=== PATIENT | female | born 1980 | race Caucasian/White ===

== ENCOUNTER 2017-12-03 18:05 | Emergency (ER) | payer MEDICAID ==
--- NOTE | 2017-12-03 19:18 | PD ---
HPI Chief Complaint sent from Theresa Carrera's office Date Seen: Dec 03, 2017 Time Seen: 19:11 Travel History International Travel<30 Days: No Contact w/Intl Traveler<30Days: No Known Affected Area: No History of Present Illness HPI 37y/o G1 @ 38.1wks. She has PNC with Theresa Carrera. She speaks Irish only. She reports that she was seen in the clinic today and was told to come here because she was not leaking her fluid at 39 weeks. She denies LOF, VB. Has occasional ctx. +FM. Weeks Gestation: 38 Para: 0 : 1 History Past Medical History Medical History: Denies Significant Hx Obstetric History Obstetric History 1. current Past Surgical History Surgical History: No Previous Surgery Family History Family History: Negative Social History Alcohol Use: No Tobacco Use: No Substance Abuse: No Review of Systems Except as stated in HPI: all other systems reviewed are Neg Physical Exam Narrative General: well developed, well nourished, no acute distress HEENT: normocephalic atraumatic, extraocular movements intact, neck supple Abdomen: soft, gravid, nontender, nondistended Uterus: fundus soft, non-tender Extremities: full range of motion Skin: normal coloration, no rashes, no suspicious skin lesions noted Neurologic: cranial nerves 2-12 grossly intact, normal muscle tone, normal gait Psychiatric: normal mood and affect, appropriate FHTs: 140s, +accels, no decels, moderate variability, reactive Veazie: quiet Cvx: FT/60/-1 Data Data Vital Signs Reviewed: Yes Orders Orders Vital Signs (Adult) .ON ADMISSION (12/03/17 19:09) ^ Labor Status (12/03/17 19:09) ^ Non Stress Test (12/03/17 19:09) Ed Discharge Order (12/03/17 19:09) MDM Plan 37y/o G1 @ 38.1wks. -- NST reactive -- toco quiet -- pt denies LOF, VB, occasional ctx Dispo: stable for d/c home with precautions Diagnosis Diagnosis: Primary Impression: 38 weeks gestation of Disposition: 01 DISCHARGE HOME Condition: Stable Patient Instructions: General Instructions, Having Your Baby: The Labor Process (GEN) Departure Forms: Tests/Procedures Loraine Hankins MD Dec 03, 2017 19:18
== END 2017-12-03 19:24 | disposition home or self-care (01) ==
LOC: HOBED 18:05
DX: O26.893 Other specified pregnancy related conditions, third trimester (principal); Z3A.38 38 weeks gestation of pregnancy
CPT/HCPCS: 99283

== ENCOUNTER 2017-12-06 07:46 | Inpatient (IN) | payer MEDICAID ==
[2017-12-06] VITALS (53 sets, daily range): BP systolic 91–128; BP diastolic 51–80; PULSE 81–114; RESP 18; TEMP 97.9–101.1
[~2017-12-06] VITALS: Ht 160 cm; Wt 55.0 kg
[2017-12-06] MEDS ORDERED: PREN1TAB45 PO (08:35)
[2017-12-06] MEDS ORDERED: LACTATED RINGER'S 1000 ML INJ 1,000 ML IV PRN (08:55)
[2017-12-06] MEDS: LACTATED RINGER'S 1000 ML INJ 1,000 ML IV SCH ×3 (08:55→18:15)
--- NOTE | 2017-12-06 08:58 | PD ---
HPI Chief Complaint Pt is a 37 yo at 39 weeks and 4 days. EDC 12-09-2017, care with Theresa Carrera. Albanian -speaking only. Pt reports contractions past 2 days. Active movements No vaginal leaking or bleeding. Travel History International Travel<30 Days: No Contact w/Intl Traveler<30Days: No Known Affected Area: No History of Present Illness HPI Pt is a 37 yo who presents with contractions past 2 days. Pt receives care with Theresa Carrera. EDC 12-09-2017 making her 38 weeks and 4 days per 15 week ultrasound. Active movements. Albanian speaking only Weeks Gestation: 39 Para: 0 : 1 History Past Medical History Medical History: Denies Significant Hx Obstetric History Obstetric History Primigravida Past Surgical History Surgical History: No Previous Surgery Family History Family History: Negative Social History Alcohol Use: No Tobacco Use: No Substance Abuse: No Allergies-Medications (Allergen,Severity, Reaction): Coded Allergies: No Known Allergies (Verified Allergy, Unknown, 12/06/17) Home Meds Reported Medications Vit,Calc76/Iron/Folic (Pnv 29-1 Tablet) 29 Mg Iron-1 Mg Tablet, 1 TAB PO DAILY 12/06/17 Review of Systems Except as stated in HPI: all other systems reviewed are Neg Physical Exam Narrative GENERAL: Well-nourished, well-developed patient. SKIN: Warm and dry. HEAD: Normocephalic and atraumatic. EYES: No scleral icterus. No injection or drainage. ENT: No nasal drainage noted. Mucous membranes pink. Airway patent. NECK: Supple, trachea midline. No JVD. CARDIOVASCULAR: Regular rate and rhythm without murmurs, gallops, or rubs. RESPIRATORY: Breath sounds equal bilaterally. No accessory muscle use. BREASTS: Bilateral exam showed no masses , no retractions, no nipple discharge. ABDOMEN/GI: Abdomen soft, non-tender, bowel sounds present, no rebound, no guarding Gravid to [39] weeks size Fundal Height: [-] GENITOURINARY: External Genitalia: intact and normal in appearance BUS glands: [wnl] Cervix: [soft] Dilatation: [4-5cm] Effacement: [100%] Station: [0] Presentation: [-] Membranes: [intact] Uterine Contractions: [1-3 minutes] FHT's: Category: [1] Baseline: [120s] Reactive: [-] Variability: moderate] Decels: [none] EXTREMITIES: No cyanosis or edema. BACK: Nontender without obvious deformity. No CVA tenderness. NEUROLOGICAL: Awake and alert. Motor and sensory grossly within normal limits. Five out of 5 muscle strength in all muscle groups. Normal speech. Data Data Vital Signs Reviewed: Yes Orders Orders Ob (2e) Additional Admit Info (12/06/17 08:32) MDM Plan Pt is a 37 yo who presents in labor at term. status reassuring Will admit to L&D GBS status unknown, will initiate GBS prophylaxis Diagnosis Diagnosis: Primary Impression: Admitted to labor and delivery Additional Impression: 39 weeks gestation of Maximino Freedman MD Dec 06, 2017 08:58
[2017-12-06] MEDS ORDERED: ONDANSETRON HCL 4 MG/2 ML VIAL IV PUSH PRN (09:00)
[2017-12-06] MEDS ORDERED: LIDOCAINE HCL 1% 50 ML VIAL I-DERMAL PRN (09:00)
[2017-12-06] MEDS ORDERED: LIDOCAINE HCL 1% 50 ML VIAL INFIL PRN (09:00)
[2017-12-06] MEDS ORDERED: PENICILLIN G POTASSIUM INJ 5,000,000 UNITS in SODIUM CHLORIDE 0.9% INJ 100 ML IV ONE (09:00)
[2017-12-06] MEDS ORDERED: CITRIC ACID-SODIUM CITRATE LIQ 30 ML UDC PO SCH (09:00)
[2017-12-06] MEDS ORDERED: SODIUM CHLORID 0.9% 500 ML INJ 500 ML IV PRN (09:00)
[2017-12-06] MEDS ORDERED: MINERAL OIL 10 ML VIAL TOPICAL PRN (09:00)
[2017-12-06] MEDS ORDERED: OXYTOCIN 30 UNITS-500ML PREMIX 500 ML IV ONE (09:00)
[2017-12-06] MEDS ORDERED: SODIUM CHLOR 0.9% 1000 ML INJ 1,000 ML IV PRN (09:15)
--- NOTE | 2017-12-06 09:27 | HHI.HP ---
HPI Chief Complaint Admitted in labor 39 weeks and 4 days Travel History International Travel<30 Days: No Contact w/Intl Traveler<30Days: No Known Affected Area: No History of Present Illness HPI Pt is a 37 yo who presents with contractions past 2 days. Pt receives care with Theresa Carrera. [facility] 12-09-2017 making her 38 weeks and 4 days per 15 week ultrasound. Active movements. Qatari speaking only Pt is 4-5 cm dilated and admitted to L&D Allergies-Medications (Allergen,Severity, Reaction): Coded Allergies: No Known Allergies (Verified Allergy, Unknown, 12/06/17) Home Meds Active Scripts Sennosides-Docusate Sodium (Gnp Senna Plus 8.6-50 mg) 8.6 Mg-50 Mg Tab, 2 TAB PO Q12H Y for CONSTIPATION, #60 TAB Prov:Noe Barillas MD R2 12/08/17 Ibuprofen (Ibuprofen) 800 Mg Tab, 800 MG PO Q8H Y for CRAMPING, #30 TAB Prov:Noe Barillas MD R2 12/08/17 Reported Medications Vit,Calc76/Iron/Folic (Pnv 29-1 Tablet) 29 Mg Iron-1 Mg Tablet, 1 TAB PO DAILY 12/06/17 Physical Exam Narrative GENERAL: Well-nourished, well-developed patient. SKIN: Warm and dry. HEAD: Normocephalic and atraumatic. EYES: No scleral icterus. No injection or drainage. ENT: No nasal drainage noted. Mucous membranes pink. Airway patent. NECK: Supple, trachea midline. No JVD. CARDIOVASCULAR: Regular rate and rhythm without murmurs, gallops, or rubs. RESPIRATORY: Breath sounds equal bilaterally. No accessory muscle use. BREASTS: Bilateral exam showed no masses , no retractions, no nipple discharge. ABDOMEN/GI: Abdomen soft, non-tender, bowel sounds present, no rebound, no guarding Gravid to [-] weeks size Fundal Height: [-] GENITOURINARY: External Genitalia: intact and normal in appearance BUS glands: [-] Cervix: [-] Dilatation: [-] Effacement: [-] Station: [-] Presentation: [-] Membranes: [intact or ruptured] Uterine Contractions: [-] FHT's: Category: [-] Baseline: [-] Reactive: [-] Variability: [-] Decels: [-] EXTREMITIES: No cyanosis or edema. BACK: Nontender without obvious deformity. No CVA tenderness. NEUROLOGICAL: Awake and alert. Motor and sensory grossly within normal limits. Five out of 5 muscle strength in all muscle groups. Normal speech. Caprini VTE Risk Assessment Caprini VTE Risk Assessment: No/Low Risk (score <= 1) Caprini Risk Assessment Model Point Value = 1 Point Value = 2 Point Value = 3 Point Value = 5 Age 41-60 Minor surgery BMI > 25 kg/m2 Swollen legs Varicose veins or History of unexplained or recurrent spontaneous Oral contraceptives or hormone replacement Sepsis (< 1 month) Serious lung disease, including pneumonia (< 1 month) Abnormal pulmonary function Acute myocardial infarction Congestive heart failure (< 1 month) History of inflammatory bowel disease Medical patient at bed rest Age 61-74 Arthroscopic surgery Major open surgery (> 45 min) Laparoscopic surgery (> 45 min) Malignancy Confined to bed (> 72 hours) Immobilizing plaster cast Central venous access Age >= 75 History of VTE Family history of VTE Factor V Leiden Prothrombin [id number] Lupus anticoagulant Anticardiolipin antibodies Elevated serum homocysteine Heparin-induced thrombocytopenia Other congenital or acquired thrombophilia Stroke (< 1 month) Elective arthroplasty Hip, pelvis, or leg fracture Acute spinal cord injury (< 1 month) Prophylaxis Regimen Total Risk Factor Score Risk Level Prophylaxis Regimen 0-1 Low Early ambulation 2 Moderate Order ONE of the following: *Sequential Compression Device (SCD) *Heparin 5000 units SQ BID 3-4 Higher Order ONE of the following medications: *Heparin 5000 units SQ TID *Enoxaparin/Lovenox 40 mg SQ daily (WT < 150 kg, CrCl > 30 mL/min) *Enoxaparin/Lovenox 30 mg SQ daily (WT < 150 kg, CrCl > 10-29 mL/min) *Enoxaparin/Lovenox 30 mg SQ BID (WT < 150 kg, CrCl > 30 mL/min) AND/OR *Sequential Compression Device (SCD) 5 or more Highest Order ONE of the following medications: *Heparin 5000 units SQ TID (Preferred with Epidurals) *Enoxaparin/Lovenox 40 mg SQ daily (WT < 150 kg, CrCl > 30 mL/min) *Enoxaparin/Lovenox 30 mg SQ daily (WT < 150 kg, CrCl > 10-29 mL/min) *Enoxaparin/Lovenox 30 mg SQ BID (WT < 150 kg, CrCl > 30 mL/min) AND *Sequential Compression Device (SCD) Data Data Orders Orders Ob (2e) Additional Admit Info (12/06/17 08:32) Admit To Inpatient (12/06/17 ) Code Status (12/06/17 08:55) Vital Signs (Adult) .Per protocol (12/06/17 08:55) Activity Oob Ad Ashlie (12/06/17 08:55) Heart (12/06/17 08:55) Amnioinfusion (12/06/17 08:55) Urinary Catheter Management .ONCE (12/06/17 08:55) Diet Liquid (12/06/17 Breakfast) Lactated Ringer's 1000 Ml Inj (Lr 1000 M (12/06/17 08:55) Lactated Ringer's 1000 Ml Inj (Lr 1000 M (12/06/17 08:55) Sodium Chlorid 0.9% 500 Ml Inj (Ns 500 M (12/06/17 09:00) Sodium Chlor 0.9% 1000 Ml Inj (Ns 1000 M (12/06/17 09:15) Lidocaine 1% Inj (50 Ml) (Xylocaine 1% I (12/06/17 09:00) Citric Acid-Sodium Citrate Liq (Bicitra (12/06/17 09:00) Ondansetron Inj (Zofran Inj) (12/06/17 09:00) Fentanyl Inj (Fentanyl Inj) (12/06/17 09:00) Fentanyl Inj (Fentanyl Inj) (12/06/17 09:00) Penicillin G Potassium Inj (Pfizerpen-G (12/06/17 09:00) Penicillin G Potassium Inj (Pfizerpen-G (12/06/17 13:00) Complete Blood Count With Diff (12/06/17 08:55) Hold Clot (12/06/17 08:55) Abo/Rh Blood Type (12/06/17 08:55) Urinalysis - C+S If Indicated (12/06/17 08:55) Drug Screen, Random Urine (12/06/17 08:55) Resp Oxygen Non Rebreathe Mask (12/06/17 ) ^ Epidural / Intrathecal Infus (12/06/17 08:55) Oxytocin 30 Units-500ml Premix (Pitocin (12/06/17 09:00) Lidocaine 1% Inj (50 Ml) (Xylocaine 1% I (12/06/17 09:00) Light Mineral Oil (Muri-Lube Oil) (12/06/17 09:00) Inpatient Certification (12/06/17 ) Specimen To Be Collected PRN (12/06/17 08:55) Specimen To Be Collected PRN (12/06/17 08:55) Group B Strep Pcr (Rapid) (12/06/17 08:57) Labs Laboratory Tests Test 12/06/17 08:49 Maximino Freedman MD Dec 06, 2017 09:27
[2017-12-06] MEDS ORDERED: fentaNYL 2MCG-BUPIV 0.125% INJ 100 ML ONE (09:35)
[2017-12-06 09:36] LABS: AUTOMATED NEUTROPHIL # 11.7 TH/MM3 (1.8-7.7); BASOPHIL % 0.3 % (0.0-2.0); EOSINOPHIL % 0.1 % (0.0-4.0); HEMATOCRIT 38.5 % (35.0-46.0); HEMOGLOBIN 12.6 GM/DL (11.6-15.3); LYMPH % 11.9 % (9.0-44.0); LYMPHOCYTE # 1.6 TH/MM3 (1.0-4.8); MEAN CELL VOLUME 89.7 FL (80.0-100.0); MEAN CORPUSCULAR HEMOGLOBIN 29.4 PG (27.0-34.0); MEAN CORPUSCULAR HGB CONC 32.8 % (32.0-36.0); MEAN PLATELET VOLUME 9.7 FL (7.0-11.0); MONO % 3.4 % (0.0-8.0); MONOCYTE # 0.5 TH/MM3 (0-0.9); NEUT % 84.3 % (16.0-70.0); PLATELET COUNT 290 TH/MM3 (150-450); RED BLOOD COUNT 4.29 MIL/MM3 (4.00-5.30); RED CELL DISTRIBUTION WIDTH 14.9 % (11.6-17.2); WHITE BLOOD COUNT 13.8 TH/MM3 (4.0-11.0)
[2017-12-06] MEDS ORDERED: ePHEDrine/NS 25 MG/5 ML SYRINGE ONE (09:36)
[2017-12-06] MEDS ORDERED: DO NOT ADMINISTER ANTICOAGULANTS PRN (11:00)
[2017-12-06] MEDS ORDERED: ePHEDrine/NS 25 MG/5 ML SYRINGE IV PUSH PRN (11:00)
[2017-12-06] MEDS ORDERED: NO SYSTEM NARCOTICS PRN (11:00)
[2017-12-06] MEDS: fentaNYL 2MCG-BUPIV 0.125% 100 ML EPIDURAL SCH ×2 (11:18→16:44)
[2017-12-06 12:31] LABS: BACTERIA, URINE MOD /hpf; BILIRUBIN, URINE NEG (NEG); BLOOD, URINE TRACE (NEG); GLUCOSE,URINE NEG (NEG); KETONE, URINE 40 mg/dL (NEG); MUCUS URINE FEW /lpf (OCC); NITRITE,URINE NEG (NEG); PH, URINE 6.5 (5.0-8.5); SQUAMOUS EPITHELIAL CELL URINE 19 /hpf (0-5); URINE COLOR YELLOW (YELLW/STRAW); URINE LEUKOCYTE ESTERASE LARGE (NEG)
[2017-12-06] MEDS ORDERED: PENICILLIN G POTASSIUM INJ 2,500,000 UNITS in SODIUM CHLORIDE 0.9% INJ 100 ML IV SCH (13:00)
[2017-12-06] MEDS ORDERED: MEASLES, MUMPS, RUBELLA VACCINE 0.5 ML VIAL SQ ONE (16:00)
[2017-12-06] MEDS ORDERED: DIPHTH/TETANUS/ACEL PERTUSSIS (BOOSTER) 0.5 ML VIAL/PFS IM ONE (16:00)
[2017-12-06] MEDS ORDERED: OXYTOCIN 30 UNITS-500ML PREMIX 500 ML ONE (18:13)
[2017-12-06] MEDS ORDERED: ACETAMINOPHEN 325 MG TAB PO ONE (18:15)
[2017-12-06] MEDS: AMPICILLIN INJ 1,000 MG in SODIUM CHLORIDE 0.9% INJ 100 ML IV SCH (20:57)
[2017-12-06] MEDS ORDERED: GENTAMICIN SULFATE 80 MG/2 ML VIAL ONE (21:00)
[2017-12-06] MEDS: GENTAMICIN 80 MG PREMIX 100 ML IV SCH (21:09)
[2017-12-06] MEDS ORDERED: LIDOCAINE HCL 1% 20 ML VIAL ONE (21:33)
--- NOTE | 2017-12-06 23:56 | PD.OB.DELI ---
Weeks gestation: 39 Pt started active labor?: Yes Medical induction of labor?: Yes Artificial rupture of membrane: No Anesthesia: Epidural Episiotomy: None Vaginal Delivery: Normal, Spontaneous Presentation: Occiput anterior Nuchal Cord: None Delayed cord clamping (45 sec): Yes Infant: Male Delivery date: Dec 06, 2017 Delivery time: 22:51 One Minute : 8 Five Minute : 9 Weight: 3245g Placenta: Spontaneous delivery, Intact, 3 vessel cord Laceration: 2 deg Repair: Vicryl running Estimated blood loss: 300 Loraine Hankins MD Dec 06, 2017 23:56
[2017-12-07] VITALS: BP 117/68; PULSE 88
[2017-12-07] MEDS ORDERED: WITCH HAZEL 50%/GLYCERIN 12.5% 40 PAD JAR TOPICAL PRN
[2017-12-07] MEDS ORDERED: ALUMINUM/MAGNESIUM/SIMETH 30 ML CUP PO PRN
[2017-12-07] MEDS ORDERED: DOCUSATE SODIUM 50 MG/SENNA 8.6 MG TAB PO PRN
[2017-12-07] MEDS ORDERED: ZOLPIDEM TARTRATE 5 MG TAB PO PRN
[2017-12-07] MEDS ORDERED: OXYTOCIN 30 UNITS-500ML PREMIX 500 ML IV SCH
[2017-12-07] MEDS ORDERED: ONDANSETRON ODT 4 MG TAB PO PRN
[2017-12-07] MEDS ORDERED: BENZOCAINE 20% TOPICAL SPRAY 60 ML CAN TOPICAL PRN
[2017-12-07 00:15] VITALS: RESP 18
[2017-12-07 00:16] VITALS: BP 117/82; PULSE 91
[2017-12-07] MEDS: IBUPROFEN 800 MG TAB PO PRN ×3 (00:40→20:25)
[2017-12-07] MEDS: ACETAMINOPHEN 325 MG TAB PO PRN ×2 (00:40→09:24)
[2017-12-07 01:15] VITALS: BP 93/57; PULSE 87; RESP 18; TEMP 98.2; O2SAT 96
[2017-12-07] MEDS: AMPICILLIN INJ 1,000 MG in SODIUM CHLORIDE 0.9% INJ 100 ML IV SCH ×3 (01:24→09:00)
[2017-12-07] MEDS: LACTATED RINGER'S 1000 ML INJ 1,000 ML IV SCH ×2 (01:33→20:27)
[2017-12-07] MEDS: GENTAMICIN 80 MG PREMIX 100 ML IV SCH (05:27)
[2017-12-07 08:00] VITALS: BP 98/59; PULSE 91; RESP 18; TEMP 98.2
--- NOTE | 2017-12-07 08:34 | HHI.OB ---
Subjective Post Day: 1 Remarks Pt seen and examined this morning. day # 1 AFVSS overnight. Decreased lochia. Denies dysuria. No breast tenderness. She is feeding the baby via breast. Appetite good. No nausea or vomiting. Patient has not yet had a bowel movement, but does endorse bowel gas. Ambulating well. Denies calf pain or shortness of breath. Otherwise, she is doing well this morning and has no other concerns. Objective Vitals/I&O Vital Signs Date Time Temp Pulse Resp B/P (MAP) Pulse Ox O2 Delivery O2 Flow Rate FiO2 12/07/17 01:15 98.2 87 18 96 12/07/17 01:15 93/57 (69) 12/07/17 00:16 91 117/82 (94) 12/07/17 00:15 18 12/07/17 00:00 88 117/68 (84) 12/06/17 23:58 18 12/06/17 23:45 89 115/60 (78) 12/06/17 23:45 18 12/06/17 23:31 85 115/54 (74) 12/06/17 23:24 18 12/06/17 23:15 18 12/06/17 23:15 85 12/06/17 23:15 117/66 (83) 12/06/17 23:14 99.5 12/06/17 23:00 91 116/68 (84) 12/06/17 21:15 96 110/66 (81) 12/06/17 21:00 100.0 12/06/17 21:00 93 18 112/61 (78) 12/06/17 20:45 102 110/59 (76) 12/06/17 20:30 105 128/77 (94) 12/06/17 20:24 18 12/06/17 20:15 102 121/73 (89) 12/06/17 20:01 105 99/73 (82) 12/06/17 20:00 101.1 12/06/17 20:00 105 18 99/73 (82) 12/06/17 19:40 100.5 12/06/17 19:30 108 119/71 (87) 12/06/17 19:21 100.4 18 12/06/17 19:16 94 108/64 (79) 2/18/18 19:12 100.4 2/18/18 19:00 97 91/54 (66) 218/18 18:00 98 124/62 (82) 218/18 17:55 99.2 2/18/18 17:30 106 118/71 (87) 218/18 17:00 105 122/77 (92) 218/18 16:52 98.5 218/18 16:44 18 2/18 16:30 101 111/79 (90) 218/18 16:00 119/69 (86) 218/18 16:00 107 18 2/18 15:54 97.9 218/18 15:30 104 125/74 (91) 2/18 15:13 18 2/18 15:00 95 98/65 (76) 2/18 14:30 96 101/63 (76) 12/06/18 14:00 93 103/71 (82) 2/18 13:30 106 100/67 (78) 2/18 13:19 98.1 18 2/18 13:00 90 100/66 (77) 218/18 12:30 91 108/66 (80) 2/18 12:01 88 102/75 (84) 12/06/18 11:30 100 104/64 (77) 2/18 11:18 18 2/18/18 11:00 97.9 18 12/06/18 11:00 89 103/63 (76) 2/18 10:45 92 102/62 (75) 218/18 10:36 81 101/54 (70) 218/18 10:21 93 113/64 (80) 218/18 10:20 114 2/18/18 10:15 103 218/18 10:15 92 105/60 (75) 218/18 10:10 93 101/63 (76) 218/18 10:10 89 2/18/18 10:06 101 108/51 (70) 218/18 10:05 93 2/18/18 10:00 97 114/63 (80) 2/18 10:00 18 218/18 10:00 103 2/18/18 09:55 105 117/75 (89) 12/06/17 09:50 94 12/06/17 09:50 89 126/75 (92) 12/06/17 09:46 95 122/80 (94) Objective Remarks GENERAL: Well-nourished, well-developed patient. CARDIOVASCULAR: Regular rate and rhythm without murmurs, gallops, or rubs. RESPIRATORY: Breath sounds equal bilaterally. No accessory muscle use. ABDOMEN/GI: Abdomen soft, non-tender. Fundus: Firm, non-tender at umbilicus. GENITOURINARY: Light to moderate bleeding. EXTREMITIES: No cyanosis or edema, non-tender, without signs of DVT. Medications and IVs Current Medications Medications (Trade) Dose Ordered Sig/Paulie Route Start Time Stop Time Status Last Admin Lactated Ringer's 1,000 ml @ 3,000 mls/hr Q20M PRN IV 12/06/17 08:55 Future Hold 12/06/17 09:21 Sodium Chloride 500 ml @ 1,000 mls/hr ONCE PRN IV 12/06/17 09:00 12/07/17 08:59 Future Hold Sodium Chloride 1,000 ml @ 100 mls/hr Q10H PRN IV 12/06/17 09:15 Future Hold (Xylocaine 1% Inj (50 ml)) 0.1 ml UNSCH X1 PRN I-DERMAL 12/06/17 09:00 12/09/17 08:59 (Bicitra Liq) 30 ml SOLID WASTE TECHNICIAN PO 12/06/17 09:00 12/10/17 08:59 (Zofran Inj) 4 mg Q6H PRN IV PUSH 12/06/17 09:00 (fentaNYL INJ) 50 mcg Q1H PRN IV PUSH 12/06/17 09:00 Future Hold (fentaNYL INJ) 100 mcg Q1H PRN IV PUSH 12/06/17 09:00 Future Hold Penicillin G Potassium 9308192 units/Sodium Chloride 100 ml @ 200 mls/hr Q4H IV 12/06/17 13:00 Future Hold (Xylocaine 1% Inj (50 ml)) 10 ml UNSCH X1 PRN INFIL 12/06/17 09:00 12/08/17 08:59 (Muri-Lube Oil) 10 ml UNSCH PRN TOPICAL 12/06/17 09:00 (Flu (Quadrivalent) Vaccine Inj) 0.5 ml ONCE ONCE IM 12/07/17 10:00 12/07/17 10:01 Miscellaneous Information No systemic narcotics to be given except... UNSCH PRN .XX 12/06/17 11:00 12/07/17 10:59 Miscellaneous Information DO NOT ADMINISTER ANY ANTICOAGUL... UNSCH PRN .XX 12/06/17 11:00 12/07/17 10:59 Fentanyl/ Bupivacaine HCl 100 ml @ 0 mls/hr TITRATE EPIDURAL 12/06/17 11:00 12/06/17 16:44 (ePHEDrine/NS 25 MG/5 ML SYR) 10 mg UNSCH PRN IV PUSH 12/06/17 11:00 12/07/17 10:59 Lactated Ringer's 1,000 ml @ 125 mls/hr Q8H IV 12/06/17 18:15 Ampicillin Sodium 1000 mg/Sodium Chloride 100 ml @ 400 mls/hr Q4H IV 12/06/17 21:00 12/07/17 05:27 Gentamicin Sulfate/Sodium Chloride 100 ml @ 200 mls/hr Q8HR IV 12/06/17 22:00 12/07/17 05:27 (NS Flush) 2 ml BID IV FLUSH 12/07/17 09:00 (Tylenol) 650 mg Q4H PRN PO 12/07/17 00:00 12/07/17 00:40 (Motrin) 800 mg Q8H PRN PO 12/07/17 00:00 12/07/17 00:40 (Americaine 20% Top Spr) 1 spray Q4H PRN TOPICAL 12/07/17 00:00 (Tucks Pads) 1 applic QID PRN TOPICAL 12/07/17 00:00 (Ines-Colace) 2 tab Q12H PRN PO 12/07/17 00:00 12/07/17 00:39 (Ambien) 5 mg HS PRN PO 12/07/17 00:00 (Mag-Al Plus Susp Liq) 15 ml Q8H PRN PO 12/07/17 00:00 (Zofran Odt) 4 mg Q6H PRN PO 12/07/17 00:00 Assessment/Plan Problem List: (1) (spontaneous vaginal delivery) ICD Codes: O80 - Encounter for full-term uncomplicated delivery Status: Acute Plan: 37 y/o female who is day # 1 s/p . -Continue routine care. -Patient currently on Ampicillin and Gentamicin for post- fever and chorioamnionitis prophylaxis; DC as patient has been afebrile without symptoms. -Percocet and Motrin PRN pain. -Encouraged OOB. Advised pelvic rest for 6 wks. -Re: ctrl, she would like to discuss her options at her follow-up appointment. -Anticipate discharge tomorrow pending clinical course. nelia Hankins MD Discharge Planning Tomorrow pending clinical course Noe Barillas MD R2 Dec 07, 2017 08:34
[2017-12-07] MEDS ORDERED: SODIUM CHLORIDE 0.9% FLUSH 10 ML FLUSH IV FLUSH SCH (09:00)
[2017-12-07] MEDS ORDERED: INFLUENZA VIRUS VACCINE (QUADRIVALENT) 0.5 ML SYR IM ONE (10:00)
[2017-12-07 20:00] VITALS: BP 98/62; PULSE 72; RESP 18; TEMP 97.5
[2017-12-08] MEDS: LACTATED RINGER'S 1000 ML INJ 1,000 ML IV SCH (02:40)
[2017-12-08] MEDS: IBUPROFEN 800 MG TAB PO PRN (05:29)
[2017-12-08] MEDS ORDERED: IBUP1TAB7 PO (07:08)
[2017-12-08] MEDS ORDERED: PERI PO (07:08)
--- NOTE | 2017-12-08 07:08 | HHI.DCPOC ---
Discharge Care Plan Diagnosis: (1) (spontaneous vaginal delivery) Report Symptoms to Your Doctor -Temperature above 100.5 degrees -Redness, of incision or excessive or foul smelling drainage -Unusual pain or calf pain -Increased vaginal bleeding -Painful or difficulty urinating -Feelings of extreme sadness or anxiety after 2 weeks Goals to Promote Your Health * To prevent worsening of your condition and complications * To maintain your health at the optimal level Directions to Meet Your Goals Take your medications as prescribed Follow your dietary instruction Follow activity as directed Ensure plenty of rest for recovery Drink fluids for hydration Keep your appointments as scheduled Take your immunizations and boosters as scheduled If your symptoms worsen call your PCP, if no PCP go to Urgent Care Center or Emergency Room Smoking is Dangerous to Your Health. Avoid second hand smoke Call the 24-hour crisis hotline for domestic abuse at Noe Barillas MD R2 Dec 08, 2017 07:08
[2017-12-08 08:00] VITALS: BP 104/71; PULSE 73; RESP 18; TEMP 97.8
--- NOTE | 2017-12-08 08:18 | HHI.OB ---
Subjective Post Day: 2 Remarks Pt seen and examined this morning. day # 2 AFVSS overnight. Decreased lochia. Denies dysuria. No breast tenderness. She is feeding the baby via breast. Appetite good. No nausea or vomiting. Patient has had a bowel movement and is passing bowel gas. Ambulating well. Denies calf pain or shortness of breath. Otherwise, she is doing well this morning and has no other concerns. Objective Vitals/I&O Vital Signs Date Time Temp Pulse Resp B/P (MAP) Pulse Ox O2 Delivery O2 Flow Rate FiO2 12/07/17 20:00 97.5 72 18 98/62 (74) Objective Remarks GENERAL: Well-nourished, well-developed patient. CARDIOVASCULAR: Regular rate and rhythm without murmurs, gallops, or rubs. RESPIRATORY: Breath sounds equal bilaterally. No accessory muscle use. ABDOMEN/GI: Abdomen soft, non-tender. Fundus: Firm, non-tender at umbilicus. GENITOURINARY: Light to moderate bleeding. EXTREMITIES: No cyanosis or edema, non-tender, without signs of DVT. Medications and IVs Current Medications Medications (Trade) Dose Ordered Sig/Paulie Route Start Time Stop Time Status Last Admin Lactated Ringer's 1,000 ml @ 3,000 mls/hr Q20M PRN IV 12/06/17 08:55 Future Hold 12/06/17 09:21 Sodium Chloride 1,000 ml @ 100 mls/hr Q10H PRN IV 12/06/17 09:15 Future Hold (Xylocaine 1% Inj (50 ml)) 0.1 ml UNSCH X1 PRN I-DERMAL 12/06/17 09:00 12/09/17 08:59 (Bicitra Liq) 30 ml OPERATOR PO 12/06/17 09:00 12/10/17 08:59 (Zofran Inj) 4 mg Q6H PRN IV PUSH 12/06/17 09:00 (fentaNYL INJ) 50 mcg Q1H PRN IV PUSH 12/06/17 09:00 Future Hold (fentaNYL INJ) 100 mcg Q1H PRN IV PUSH 12/06/17 09:00 Future Hold Penicillin G Potassium 0666035 units/Sodium Chloride 100 ml @ 200 mls/hr Q4H IV 12/06/17 13:00 Future Hold (Xylocaine 1% Inj (50 ml)) 10 ml UNSCH X1 PRN INFIL 12/06/17 09:00 12/08/17 08:59 (Muri-Lube Oil) 10 ml UNSCH PRN TOPICAL 12/06/17 09:00 Fentanyl/ Bupivacaine HCl 100 ml @ 0 mls/hr TITRATE EPIDURAL 12/06/17 11:00 12/06/17 16:44 Lactated Ringer's 1,000 ml @ 125 mls/hr Q8H IV 12/06/17 18:15 (NS Flush) 2 ml BID IV FLUSH 12/07/17 09:00 (Tylenol) 650 mg Q4H PRN PO 12/07/17 00:00 12/07/17 09:24 (Motrin) 800 mg Q8H PRN PO 12/07/17 00:00 12/08/17 05:29 (Americaine 20% Top Spr) 1 spray Q4H PRN TOPICAL 12/07/17 00:00 12/07/17 20:25 (Tucks Pads) 1 applic QID PRN TOPICAL 12/07/17 00:00 12/07/17 20:25 (Ines-Colace) 2 tab Q12H PRN PO 12/07/17 00:00 12/07/17 00:39 (Ambien) 5 mg HS PRN PO 12/07/17 00:00 (Mag-Al Plus Susp Liq) 15 ml Q8H PRN PO 12/07/17 00:00 (Zofran Odt) 4 mg Q6H PRN PO 12/07/17 00:00 Assessment/Plan Problem List: (1) (spontaneous vaginal delivery) ICD Codes: O80 - Encounter for full-term uncomplicated delivery Status: Acute Plan: 37 y/o female who is day #2 s/p . -Continue routine care. -Ampicillin and Gentamicin for post- fever and chorioamnionitis prophylaxis; DC as patient has been afebrile without symptoms. -Ibuprofen PRN pain. -Encouraged OOB. Advised pelvic rest for 6 wks. -Re: ctrl, she would like to discuss her options at her follow-up appointment. -Anticipate discharge today. nelia Mariano MD Discharge Planning Today pending clinical course Noe Barillas MD R2 Dec 08, 2017 08:18
== END 2017-12-08 11:48 | disposition home or self-care (01) | DRG 775 ==
LOC: HOBED 07:46 → H2EB 08:33 → H1EA 12-07 00:51
PROVIDERS: ADMIT Obstetrics & Gynecology; ATTEND Obstetrics & Gynecology
PROC: 10E0XZZ Delivery of Products of Conception, External Approach (ICD-10-PCS; principal; 2017-12-06)
PROC: 0KQM0ZZ Repair Perineum Muscle, Open Approach (ICD-10-PCS; 2017-12-06)
DX: O70.1 Second degree perineal laceration during delivery (principal); Z37.0 Single live birth; O41.1230 Chorioamnionitis, third trimester, not applicable or unspecified; Z3A.38 38 weeks gestation of pregnancy
CPT/HCPCS: 59025; 80307; 81001; 85025; 86900; 86901; 87086; 87150; 87210; 88307; 90715; J0290; J1580; J2540; J2590; J7120